=== PATIENT | male | born 1945 | race Caucasian/White ===

== ENCOUNTER → 2020-07-04 | Outpatient (CLI) | payer OTHER ==
[2020-07-04 15:51] LABS: BASO # 0.1 10^3/uL (0.0-0.2); BASO % 1.5 % (0.0-1.0); EOS # 0.2 10^3/uL (0.0-0.5); HEMATOCRIT 41.2 % (42.0-52.0); HEMOGLOBIN 13.5 g/dl (13.5-17.5); LYMPH # 1.5 10^3/uL (1.5-5.0); LYMPH % 27.5 % (24.0-44.0); MEAN CORPUSCULAR HEMOGLOBIN 35.3 pg (27.0-33.0); MEAN CORPUSCULAR HGB CONC 32.8 g/dl (32.0-36.5); MEAN CORPUSCULAR VOLUME 107.9 fl (80.0-96.0); MONO # 0.4 10^3/uL (0.0-0.8); MONO % 8.2 % (0.0-5.0); NEUTROPHILS # 3.1 10^3/uL (1.5-8.5); NEUTROPHILS % 59.4 % (36.0-66.0); PLATELET COUNT, AUTOMATED 136 10^3/uL (150-450); RED BLOOD COUNT 3.82 10^6/uL (4.30-6.10); WHITE BLOOD COUNT 5.3 10^3/uL (4.0-10.0)
[2020-07-04 16:12] LABS: HEMOGLOBIN A1c 4.9 %
[2020-07-04 16:52] LABS: ALBUMIN 3.8 GM/DL (3.2-5.2); BILIRUBIN,TOTAL 0.6 MG/DL (0.2-1.0); CALCIUM LEVEL 9.5 MG/DL (8.8-10.2); CHOLESTEROL RISK RATIO 2.032 (<5); CREATININE FOR GFR 1.26 MG/DL (0.70-1.30); GLOMERULAR FILTRATION RATE 59.6 (>42); POTASSIUM SERUM 4.5 MEQ/L (3.5-5.1); TOTAL PROTEIN 7.4 GM/DL (6.4-8.2)
== END ==
LOC: M WUC 13:27
PROVIDERS: ATTEND Family Medicine
DX: E78.2 Mixed hyperlipidemia (principal); I10 Essential (primary) hypertension; R73.01 Impaired fasting glucose

== ENCOUNTER → 2021-04-18 | Outpatient (CLI) | payer OTHER ==
--- NOTE | 2021-04-19 07:06 | REP ---
INDICATION: CKD III COMPARISON: None TECHNIQUE: Real time flores scale ultrasound examination using curved array transducer. FINDINGS: Bilateral kidneys are normal in contour, size, echogenicity and reniform shape. Increased central sinus fat and renovascular calcifications are consistent with chronic medical renal disease. No hydronephrosis, nephrolithiasis, cystic or renal mass lesion. Bladder is unremarkable. Right kidney measures 11.0 x 4.6 x 4.3 cm. Left kidney measures 11.6 x 4.1 x 5.1 cm. IMPRESSION: 1. Evidence for chronic medical renal disease. 2. No hydronephrosis. <Electronically signed by Frederick Denny > 04/19/21 0702
== END ==
LOC: M RAD 14:53
PROVIDERS: ATTEND Internal Medicine
DX: N18.30 Chronic kidney disease, stage 3 unspecified (principal)

== ENCOUNTER 2022-11-13 17:57 | Inpatient (IN) | payer OTHER ==
[~2022-11-13] VITALS: Ht 198.1 cm; Wt 109.6 kg
[2022-11-13] MEDS ORDERED: D3 +TAB PO (18:11)
[2022-11-13] MEDS ORDERED: MIRT1TAB17 PO (18:11)
[2022-11-13] MEDS ORDERED: GLUC2.5T9 PO (18:11)
[2022-11-13] MEDS ORDERED: SIMV40TA20 PO (18:11)
[2022-11-13] MEDS ORDERED: VITMTA PO ×2 (18:11→23:02)
[2022-11-13] MEDS ORDERED: ASPI81CH33 PO (18:11)
[2022-11-13] MEDS ORDERED: FLUT15.820 NARES (18:11)
[2022-11-13] MEDS ORDERED: PRAZ1CAP PO (18:11)
[2022-11-13] MEDS ORDERED: LOSA100T45 PO (18:11)
[2022-11-13] MEDS ORDERED: OMEP-173 PO (18:11)
[2022-11-13] MEDS ORDERED: CLON0.5T17 PO (18:11)
[2022-11-13 18:53] LABS: EOS # 0.1 10^3/uL (0.0-0.5); LYMPH # 0.7 10^3/uL (1.5-5.0); LYMPH % 18.1 % (24.0-44.0); MEAN CORPUSCULAR HEMOGLOBIN 19.9 pg (27.0-33.0); MEAN CORPUSCULAR HGB CONC 27.3 g/dl (32.0-36.5); MEAN CORPUSCULAR VOLUME 72.7 fl (80.0-96.0); MONO # 0.4 10^3/uL (0.0-0.8); MONO % 9.8 % (2.0-8.0); NEUTROPHILS # 2.7 10^3/uL (1.5-8.5); NEUTROPHILS % 68.6 % (36.0-66.0); PLATELET COUNT, AUTOMATED 152 10^3/uL (150-450); RED BLOOD COUNT 2.82 10^6/uL (4.30-6.10)
[2022-11-13 19:00] LABS: HEMATOCRIT 20.5 % (42.0-52.0); HEMOGLOBIN 5.6 g/dl (13.5-17.5)
[2022-11-13] MEDS ORDERED: PANTOPRAZOLE 40MG VIAL IV ONE (19:15)
[2022-11-13 19:16] LABS: ALBUMIN 2.5 G/DL (3.2-5.2); BILIRUBIN,DIRECT 0.3 MG/DL (<0.4); BILIRUBIN,TOTAL 0.8 MG/DL (0.3-1.2); CALCIUM LEVEL 8.3 MG/DL (8.3-10.6); CREATININE FOR GFR 1.84 MG/DL (0.70-1.30); GLOMERULAR FILTRATION RATE 38.3 (>42); POTASSIUM SERUM 4.7 MMOL/L (3.5-5.1); TOTAL PROTEIN 6.4 G/DL (5.7-8.2)
[2022-11-13 19:24] LABS: PERCENT SATURATION 2.3 % (19.7-50.0)
[2022-11-13 19:28] LABS: FERRITIN 7.4 NG/ML (10.5-307.3)
[2022-11-13 19:29] LABS: FOLATE 17.98 NG/ML (>5.4)
[2022-11-13 19:44] LABS: RSV AMPLIFICATION NEGATIVE (NEGATIVE)
[2022-11-13 19:59] LABS: INR 1.1; PROTHROMBIN TIME 14.4 SECONDS (12.5-14.5)
[2022-11-13] MEDS ORDERED: PANTOPRAZOLE SODIUM 40 MG in D5W 50 ML IV SCH (20:00)
[2022-11-13] MEDS ORDERED: FUROSEMIDE 100MG/10ML VIAL IV ONE (20:15)
[2022-11-13 20:47] VITALS: BP 115/59
[2022-11-13] MEDS: THIAMINE 100 MG TAB PO SCH (21:00)
[2022-11-13 21:06] VITALS: BP 116/57
[2022-11-13 22:13] VITALS: BP 118/63
[2022-11-13] MEDS ORDERED: LORazepam 2 MG TAB PO PRN (23:00)
[2022-11-13] MEDS ORDERED: OMEP1CAP73 PO (23:02)
[2022-11-13] MEDS ORDERED: FLON1SPR (23:02)
[2022-11-13] MEDS ORDERED: MELA3TAB30 PO (23:02)
[2022-11-13] MEDS ORDERED: ASPI-161 PO (23:02)
[2022-11-13] MEDS ORDERED: CETI-24 PO (23:02)
[2022-11-13] MEDS ORDERED: MIRT-62 PO (23:02)
[2022-11-13] MEDS ORDERED: OCUVTAB4 PO (23:02)
[2022-11-13] MEDS ORDERED: COZA100T3 PO (23:02)
[2022-11-13] MEDS ORDERED: VITA100093 PO (23:02)
[2022-11-13] MEDS ORDERED: HOME MED LIST COMPLETE! XX SCH (23:05)
[2022-11-14] VITALS (25 sets, daily range): BP systolic 94–129; BP diastolic 52–80; O2SAT 93–96
[2022-11-14] MEDS ORDERED: FLUTICASONE PROP 0.05% NASAL SPRAY 16 GM (FLONASE) PRN (00:30)
[2022-11-14] MEDS: MIRTAZAPINE 15 MG TAB PO SCH ×2 (00:43→21:14)
[2022-11-14 05:51] LABS: HEMATOCRIT 22.3 % (42.0-52.0); MEAN CORPUSCULAR HEMOGLOBIN 21.9 pg (27.0-33.0); MEAN CORPUSCULAR HGB CONC 29.1 g/dl (32.0-36.5); MEAN CORPUSCULAR VOLUME 75.1 fl (80.0-96.0); PLATELET COUNT, AUTOMATED 114 10^3/uL (150-450); RED BLOOD COUNT 2.97 10^6/uL (4.30-6.10); WHITE BLOOD COUNT 3.5 10^3/uL (4.0-10.0)
[2022-11-14 05:57] LABS: HEMOGLOBIN 6.5 g/dl (13.5-17.5)
[2022-11-14 06:25] LABS: BLOOD UREA NITROGEN 22 MG/DL (9-23); CALCIUM LEVEL 7.8 MG/DL (8.3-10.6); CARBON DIOXIDE LEVEL 26 MMOL/L (20-31); CHLORIDE LEVEL 107 MMOL/L (98-107); GLOMERULAR FILTRATION RATE 39.2 (>42); GLUCOSE, FASTING 102 MG/DL (74-106); SODIUM LEVEL 140 MMOL/L (136-145)
[2022-11-14] MEDS ORDERED: FUROSEMIDE 40MG/4ML VIAL IV SCH ×2 (07:05→09:00)
[2022-11-14] MEDS ORDERED: FUROSEMIDE 40MG/4ML VIAL IV ONE (07:10)
[2022-11-14] MEDS: SUCRALFATE 1 GM TAB PO SCH ×4 (07:38→21:14)
[2022-11-14 07:57] LABS: ALBUMIN 2.3 G/DL (3.2-5.2); ALKALINE PHOSPHATASE 169 U/L (46-116); ALT/SGPT < 9 U/L (7.0-40); AST/SGOT 18 U/L (<34); BILIRUBIN,DIRECT 0.7 MG/DL (<0.4); BILIRUBIN,TOTAL 1.9 MG/DL (0.3-1.2); TOTAL PROTEIN 5.7 G/DL (5.7-8.2)
[2022-11-14] MEDS: MULTIVITAMINS/MINERALS THERAP 1 TAB PO SCH (08:40)
[2022-11-14] MEDS: FOLIC ACID 1MG TAB PO SCH (08:40)
[2022-11-14] MEDS: OMEPRAZOLE 20MG CAP PO SCH (08:40)
[2022-11-14] MEDS: THIAMINE 100 MG TAB PO SCH ×2 (08:40→21:14)
[2022-11-14] MEDS: PANTOPRAZOLE 40MG TAB (PROTONIX) PO SCH (08:41)
[2022-11-14] MEDS ORDERED: ASPIRIN 81MG ENTERIC TABLET PO SCH (09:00)
[2022-11-14 14:22] LABS: CALCIUM LEVEL 8.2 MG/DL (8.3-10.6); CREATININE FOR GFR 1.84 MG/DL (0.70-1.30); GLOMERULAR FILTRATION RATE 38.3 (>42); POTASSIUM SERUM 4.5 MMOL/L (3.5-5.1)
[2022-11-14 15:27] LABS: APPEARANCE, BODY FLUID HAZY (CLEAR); ASCITES FL COLOR YELLOW (COLORLESS); SOURCE, BODY FLUID ASCITES
[2022-11-14 15:37] LABS: HEMATOCRIT 25.6 % (42.0-52.0); HEMOGLOBIN 7.4 g/dl (13.5-17.5)
[2022-11-14 15:47] LABS: SOURCE, BODY FLUID ALBUMIN ASCITES
[2022-11-14 15:52] LABS: SOURCE, BODY FLUID GLUCOSE ASCITES
[2022-11-14 15:54] LABS: SOURCE, BODY FLUID TOT PROTEIN ASCITES; TOTAL PROTEIN, BODY FLUID < 2.0 G/DL (NOT ESTABLISHED)
[2022-11-14] MEDS: MIDODRINE 5 MG TAB PO SCH (16:06)
[2022-11-14 18:27] LABS: HEMATOCRIT 25.7 % (42.0-52.0); HEMOGLOBIN 7.7 g/dl (13.5-17.5)
[2022-11-15] VITALS (16 sets, daily range): BP systolic 98–120; BP diastolic 52–73
[2022-11-15 05:47] LABS: HEMATOCRIT 23.8 % (42.0-52.0); MEAN CORPUSCULAR HEMOGLOBIN 21.8 pg (27.0-33.0); MEAN CORPUSCULAR VOLUME 75.3 fl (80.0-96.0); PLATELET COUNT, AUTOMATED 125 10^3/uL (150-450); RED BLOOD COUNT 3.16 10^6/uL (4.30-6.10); WHITE BLOOD COUNT 3.5 10^3/uL (4.0-10.0)
[2022-11-15 05:56] LABS: HEMOGLOBIN 6.9 g/dl (13.5-17.5)
[2022-11-15 06:21] LABS: CALCIUM LEVEL 7.7 MG/DL (8.3-10.6); CREATININE FOR GFR 1.68 MG/DL (0.70-1.30); GLOMERULAR FILTRATION RATE 42.5 (>42); POTASSIUM SERUM 3.8 MMOL/L (3.5-5.1); TOTAL PROTEIN 5.3 G/DL (5.7-8.2)
[2022-11-15] MEDS: MULTIVITAMINS/MINERALS THERAP 1 TAB PO SCH (07:54)
[2022-11-15] MEDS: FOLIC ACID 1MG TAB PO SCH (07:54)
[2022-11-15] MEDS: SUCRALFATE 1 GM TAB PO SCH ×4 (07:54→22:08)
[2022-11-15] MEDS: OMEPRAZOLE 20MG CAP PO SCH (07:54)
[2022-11-15] MEDS: PANTOPRAZOLE 40MG TAB (PROTONIX) PO SCH (07:55)
[2022-11-15] MEDS: THIAMINE 100 MG TAB PO SCH ×2 (07:55→22:08)
[2022-11-15] MEDS: MIDODRINE 5 MG TAB PO SCH ×5 (07:55→17:22)
[2022-11-15 16:45] LABS: SOURCE, BODY FLUID pH PLEURAL
[2022-11-15 16:56] LABS: SOURCE, BODY FLUID PLEURAL
[2022-11-15 16:57] LABS: APPEARANCE, BODY FLUID CLEAR (CLEAR); PLEURAL FL COLOR YELLOW (COLORLESS)
[2022-11-15 17:39] LABS: SOURCE, BODY FLUID ALBUMIN PLEURAL
[2022-11-15 17:44] LABS: SOURCE, BODY FLUID GLUCOSE PLEURAL; SOURCE, BODY FLUID TRIG PLEURAL; TRIGLYCERIDE, BODY FLUID 16 MG/DL (NOT ESTABLISHED)
[2022-11-15 17:46] LABS: AMYLASE, BODY FLUID < 20 U/L (NOT ESTABLISHED); CHOLESTEROL, BODY FLUID < 25 MG/DL (NOT ESTABLISHED); LDH, BODY FLUID 77 U/L (NOT ESTABLISHED); SOURCE, BODY FLUID AMYLASE PLEURAL; SOURCE, BODY FLUID CHOL PLEURAL; SOURCE, BODY FLUID LDH PLEURAL
[2022-11-15 17:47] LABS: SOURCE, BODY FLUID TOT PROTEIN PLEURAL; TOTAL PROTEIN, BODY FLUID 2.4 G/DL (NOT ESTABLISHED)
[2022-11-15 18:47] LABS: HEMATOCRIT 30.2 % (42.0-52.0)
[2022-11-15] MEDS: MIRTAZAPINE 15 MG TAB PO SCH (22:08)
[2022-11-16 06:00] VITALS: BP 122/66
[2022-11-16] MEDS ORDERED: SUCR1TA PO (07:59)
[2022-11-16] MEDS ORDERED: PANT40TA29 PO (07:59)
[2022-11-16] MEDS ORDERED: SELF1KIT MC (08:00)
[2022-11-16] MEDS ORDERED: PROP10TA56 PO (08:03)
[2022-11-16 08:41] LABS: HEMATOCRIT 28.6 % (42.0-52.0); HEMOGLOBIN 8.6 g/dl (13.5-17.5); MEAN CORPUSCULAR HEMOGLOBIN 22.9 pg (27.0-33.0); MEAN CORPUSCULAR HGB CONC 30.1 g/dl (32.0-36.5); MEAN CORPUSCULAR VOLUME 76.3 fl (80.0-96.0); PLATELET COUNT, AUTOMATED 134 10^3/uL (150-450); RED BLOOD COUNT 3.75 10^6/uL (4.30-6.10); WHITE BLOOD COUNT 4.9 10^3/uL (4.0-10.0)
[2022-11-16 08:53] VITALS: BP 118/78
[2022-11-16] MEDS: PANTOPRAZOLE 40MG TAB (PROTONIX) PO SCH (08:53)
[2022-11-16] MEDS: OMEPRAZOLE 20MG CAP PO SCH (08:53)
[2022-11-16] MEDS: FOLIC ACID 1MG TAB PO SCH (08:53)
[2022-11-16] MEDS: MULTIVITAMINS/MINERALS THERAP 1 TAB PO SCH (08:53)
[2022-11-16] MEDS: SUCRALFATE 1 GM TAB PO SCH (08:53)
[2022-11-16] MEDS: THIAMINE 100 MG TAB PO SCH (08:53)
[2022-11-16] MEDS ORDERED: PROPRANOLOL 10 MG TAB PO SCH (09:00)
[2022-11-16] MEDS ORDERED: rifAXIMin 550 MG TAB (XIFAXAN) PO SCH (09:00)
[2022-11-16 09:05] LABS: CALCIUM LEVEL 7.8 MG/DL (8.3-10.6); CREATININE FOR GFR 1.49 MG/DL (0.70-1.30); GLOMERULAR FILTRATION RATE 48.8 (>42); POTASSIUM SERUM 3.7 MMOL/L (3.5-5.1)
[2022-11-16] MEDS ORDERED: XIFA200T2 PO (09:31)
[2022-11-16] MEDS ORDERED: XIFA550T PO (09:34)
== END 2022-11-16 13:34 | disposition home health service (06) | DRG 433 ==
LOC: M ED 17:57 → M ED INP 22:14 → ENRESERV 22:49 → CANRESERV 22:49 → M PCU 22:58 → ENRESERV 23:07 → M MSPAV 11-14 18:22
PROVIDERS: ADMIT Family Medicine; ATTEND General Practice
PROC: 30233N1 Transfusion of Nonautologous Red Blood Cells into Peripheral Vein, Percutaneous Approach (ICD-10-PCS; principal; 2022-11-13)
PROC: 30233J1 Transfusion of Nonautologous Serum Albumin into Peripheral Vein, Percutaneous Approach (ICD-10-PCS; 2022-11-14)
PROC: 0W9G3ZZ Drainage of Peritoneal Cavity, Percutaneous Approach (ICD-10-PCS; 2022-11-14)
PROC: 0W993ZZ Drainage of Right Pleural Cavity, Percutaneous Approach (ICD-10-PCS; 2022-11-15)
PROC: B246ZZZ Ultrasonography of Right and Left Heart (ICD-10-PCS; 2022-11-16)
DX: K70.31 Alcoholic cirrhosis of liver with ascites (principal); N17.9 Acute kidney failure, unspecified; K76.6 Portal hypertension; J90 Pleural effusion, not elsewhere classified; I12.9 Hypertensive chronic kidney disease with stage 1 through stage 4 chronic kidney disease, or unspecified chronic kidney disease; E78.5 Hyperlipidemia, unspecified; F43.10 Post-traumatic stress disorder, unspecified; M19.90 Unspecified osteoarthritis, unspecified site; Z90.49 Acquired absence of other specified parts of digestive tract; Z87.891 Personal history of nicotine dependence; D50.9 Iron deficiency anemia, unspecified; F10.10 Alcohol abuse, uncomplicated; Z66 Do not resuscitate; Z79.82 Long term (current) use of aspirin; Z79.899 Other long term (current) drug therapy; N18.9 Chronic kidney disease, unspecified; R79.89 Other specified abnormal findings of blood chemistry

== ENCOUNTER 2022-12-23 13:11 | Inpatient (IN) | payer MEDICARE, OTHER ==
[~2022-12-23] VITALS: Ht 198.1 cm; Wt 96.5 kg
[~2022-12-23 13:11] MED LIST: ASPI-161 PO; ASPI81CH33 PO; CETI-24 PO; CLON0.5T17 PO; COZA100T3 PO; D3 +TAB PO; FLON1SPR; FLUT15.820 NARES; GLUC2.5T9 PO; LOSA100T46 PO; MELA3TAB30 PO; MIRT-62 PO; MIRT1TAB17 PO; OCUVTAB4 PO; OMEP-173 PO; OMEP1CAP73 PO; PANT40TA29 PO; PRAZ1CAP PO; PROP10TA56 PO; SELF1KIT MC; SIMV40TA20 PO; SUCR1TA PO; VITA100093 PO; VITMTA PO; XIFA200T2 PO; XIFA550T PO
[2022-12-23 14:16] LABS: BASO # 0.1 10^3/uL (0.0-0.2); BASO % 1.6 % (0.0-1.0); EOS # 0.1 10^3/uL (0.0-0.5); EOS % 1.3 % (0.0-3.0); HEMATOCRIT 33.1 % (42.0-52.0); HEMOGLOBIN 9.7 g/dl (13.5-17.5); LYMPH # 0.7 10^3/uL (1.5-5.0); LYMPH % 18.9 % (24.0-44.0); MEAN CORPUSCULAR HGB CONC 29.3 g/dl (32.0-36.5); MEAN CORPUSCULAR VOLUME 81.9 fl (80.0-96.0); MONO # 0.3 10^3/uL (0.0-0.8); MONO % 8.4 % (2.0-8.0); NEUTROPHILS # 2.7 10^3/uL (1.5-8.5); NEUTROPHILS % 69.5 % (36.0-66.0); PLATELET COUNT, AUTOMATED 162 10^3/uL (150-450); RED BLOOD COUNT 4.04 10^6/uL (4.30-6.10); WHITE BLOOD COUNT 3.8 10^3/uL (4.0-10.0)
[2022-12-23 14:24] LABS: INR 1.02; PROTHROMBIN TIME 13.6 SECONDS (12.5-14.5)
[2022-12-23 14:42] LABS: ALBUMIN 2.5 G/DL (3.2-5.2); ALKALINE PHOSPHATASE 193 U/L (46-116); ALT/SGPT 10 U/L (7.0-40); AST/SGOT 25 U/L (<34); BILIRUBIN,DIRECT 0.4 MG/DL (<0.4); BILIRUBIN,TOTAL 0.9 MG/DL (0.3-1.2); BLOOD UREA NITROGEN 8 MG/DL (9-23); CALCIUM LEVEL 8.2 MG/DL (8.3-10.6); CARBON DIOXIDE LEVEL 27 MMOL/L (20-31); CHLORIDE LEVEL 103 MMOL/L (98-107); CREATININE FOR GFR 1.17 MG/DL (0.70-1.30); GLOMERULAR FILTRATION RATE > 60.0 (>42); GLUCOSE, FASTING 145 MG/DL (74-106); POTASSIUM SERUM 3.6 MMOL/L (3.5-5.1); SODIUM LEVEL 137 MMOL/L (136-145); TOTAL PROTEIN 6.6 G/DL (5.7-8.2)
[2022-12-23] MEDS ORDERED: FUROSEMIDE 40MG/4ML VIAL IV ONE (15:40)
[2022-12-23] MEDS ORDERED: HOME MED LIST COMPLETE! XX SCH (17:00)
[2022-12-23] MEDS ORDERED: THIAMINE 100 MG TAB PO SCH (21:00)
[2022-12-23 21:03] VITALS: BP 138/71
[2022-12-23] MEDS: MIRTAZAPINE 15 MG TAB PO SCH (21:54)
[2022-12-23] MEDS: PROPRANOLOL 10 MG TAB PO SCH (21:56)
[2022-12-23] MEDS ORDERED: LORazepam 2 MG TAB PO PRN (22:00)
[2022-12-23] MEDS ORDERED: RAMELTEON 8 MG TAB (ROZEREM) PO PRN (22:00)
[2022-12-24] VITALS (11 sets, daily range): BP systolic 98–126; BP diastolic 62–72
[2022-12-24 06:18] LABS: BASO # 0.1 10^3/uL (0.0-0.2); BASO % 1.9 % (0.0-1.0); EOS # 0.2 10^3/uL (0.0-0.5); EOS % 3.9 % (0.0-3.0); HEMATOCRIT 27.4 % (42.0-52.0); HEMOGLOBIN 8.1 g/dl (13.5-17.5); LYMPH # 1.2 10^3/uL (1.5-5.0); LYMPH % 27.1 % (24.0-44.0); MEAN CORPUSCULAR HEMOGLOBIN 23.9 pg (27.0-33.0); MEAN CORPUSCULAR HGB CONC 29.6 g/dl (32.0-36.5); MEAN CORPUSCULAR VOLUME 80.8 fl (80.0-96.0); MONO # 0.6 10^3/uL (0.0-0.8); NEUTROPHILS # 2.3 10^3/uL (1.5-8.5); NEUTROPHILS % 53.9 % (36.0-66.0); PLATELET COUNT, AUTOMATED 155 10^3/uL (150-450); RED BLOOD COUNT 3.39 10^6/uL (4.30-6.10); WHITE BLOOD COUNT 4.3 10^3/uL (4.0-10.0)
[2022-12-24 06:42] LABS: LDH LACTATE DEHYDROGENASE 152 U/L (120-246)
[2022-12-24 06:43] LABS: TOTAL IRON BINDING CAPACITY 259 UG/DL (250-425)
[2022-12-24 06:44] LABS: BLOOD UREA NITROGEN 9 MG/DL (9-23); CALCIUM LEVEL 7.8 MG/DL (8.3-10.6); CARBON DIOXIDE LEVEL 28 MMOL/L (20-31); CHLORIDE LEVEL 105 MMOL/L (98-107); CREATININE FOR GFR 1.21 MG/DL (0.70-1.30); GLOMERULAR FILTRATION RATE > 60.0 (>42); GLUCOSE, FASTING 100 MG/DL (74-106); IRON (FE) 13 UG/DL (65-175); POTASSIUM SERUM 3.6 MMOL/L (3.5-5.1); SODIUM LEVEL 136 MMOL/L (136-145)
[2022-12-24 06:46] LABS: FERRITIN 14.9 NG/ML (10.5-307.3)
[2022-12-24 08:39] LABS: ALBUMIN 2.2 G/DL (3.2-5.2)
[2022-12-24] MEDS: SPIRONOLACTONE 25 MG TAB PO SCH ×2 (09:00→17:26)
[2022-12-24] MEDS: PROPRANOLOL 10 MG TAB PO SCH ×2 (09:00→21:00)
[2022-12-24] MEDS ORDERED: FUROSEMIDE 40MG/4ML VIAL IV SCH (09:00)
[2022-12-24] MEDS ORDERED: FOLIC ACID 1MG TAB PO SCH (09:00)
[2022-12-24] MEDS: OMEPRAZOLE 20MG CAP PO SCH (09:10)
[2022-12-24] MEDS: CETIRIZINE (ZyrTEC) 10 MG TAB PO SCH (09:10)
[2022-12-24] MEDS: VITAMIN D 1,000 INTERNATIONAL UNITS TABLET PO SCH (09:10)
[2022-12-24] MEDS: MULTIVITAMINS/MINERALS THERAP 1 TAB PO SCH (09:10)
[2022-12-24 12:22] LABS: APPEARANCE, BODY FLUID HAZY (CLEAR); ASCITES FL COLOR PALE YELLOW (COLORLESS); SOURCE, BODY FLUID ASCITES
[2022-12-24 12:58] LABS: SOURCE, BODY FLUID ALBUMIN ASCITES
[2022-12-24 13:04] LABS: SOURCE, BODY FLUID GLUCOSE ASCITES
[2022-12-24 13:06] LABS: SOURCE, BODY FLUID TOT PROTEIN ASCITES; TOTAL PROTEIN, BODY FLUID < 2.0 G/DL (NOT ESTABLISHED)
[2022-12-24] MEDS ORDERED: POTASSIUM CHLORIDE 10MEQ SR TABLET PO ONE (14:00)
[2022-12-24] MEDS: FERROUS SULFATE 325MG TAB PO SCH (14:13)
[2022-12-24] MEDS ORDERED: FERRIC CARBOXYMALTOSE INJ 750 MG, VIAL MATE ADAPTER 1 EACH in NS 250 ML IV ONE (15:00)
[2022-12-24] MEDS: FERRIC CARBOXYMALTOSE INJ 750 MG, VIAL MATE ADAPTER 1 EACH in NS 250 ML IV ONE ×2 (21:00→22:45)
[2022-12-24] MEDS: MIRTAZAPINE 15 MG TAB PO SCH (22:13)
[2022-12-25 06:00] VITALS: BP 114/67
[2022-12-25 07:10] LABS: BASO % 1.4 % (0.0-1.0); EOS # 0.1 10^3/uL (0.0-0.5); EOS % 3.8 % (0.0-3.0); HEMATOCRIT 26.5 % (42.0-52.0); LYMPH % 35.7 % (24.0-44.0); MEAN CORPUSCULAR HGB CONC 30.2 g/dl (32.0-36.5); MEAN CORPUSCULAR VOLUME 79.6 fl (80.0-96.0); MONO # 0.4 10^3/uL (0.0-0.8); MONO % 12.6 % (2.0-8.0); NEUTROPHILS # 1.3 10^3/uL (1.5-8.5); NEUTROPHILS % 46.2 % (36.0-66.0); PLATELET COUNT, AUTOMATED 134 10^3/uL (150-450); RED BLOOD COUNT 3.33 10^6/uL (4.30-6.10); WHITE BLOOD COUNT 2.9 10^3/uL (4.0-10.0)
[2022-12-25 07:42] LABS: BLOOD UREA NITROGEN 10 MG/DL (9-23); CALCIUM LEVEL 7.3 MG/DL (8.3-10.6); CARBON DIOXIDE LEVEL 27 MMOL/L (20-31); CHLORIDE LEVEL 106 MMOL/L (98-107); CREATININE FOR GFR 1.17 MG/DL (0.70-1.30); GLOMERULAR FILTRATION RATE > 60.0 (>42); GLUCOSE, FASTING 82 MG/DL (74-106); POTASSIUM SERUM 3.7 MMOL/L (3.5-5.1); SODIUM LEVEL 139 MMOL/L (136-145)
[2022-12-25] MEDS: MULTIVITAMINS/MINERALS THERAP 1 TAB PO SCH (08:57)
[2022-12-25] MEDS: OMEPRAZOLE 20MG CAP PO SCH (08:58)
[2022-12-25] MEDS: CETIRIZINE (ZyrTEC) 10 MG TAB PO SCH (08:58)
[2022-12-25] MEDS: FERROUS SULFATE 325MG TAB PO SCH (08:58)
[2022-12-25] MEDS: VITAMIN D 1,000 INTERNATIONAL UNITS TABLET PO SCH (08:58)
[2022-12-25] MEDS ORDERED: FUROSEMIDE 40 MG TAB PO SCH (09:00)
[2022-12-25] MEDS ORDERED: FUROSEMIDE 20 MG TAB PO SCH (09:00)
[2022-12-25] MEDS: SPIRONOLACTONE 25 MG TAB PO SCH (09:40)
[2022-12-25] MEDS ORDERED: MAGN400C PO (10:59)
[2022-12-25] MEDS ORDERED: ALDA25TA2 PO (10:59)
[2022-12-25] MEDS ORDERED: FURO40TA2 PO (10:59)
[2022-12-25] MEDS ORDERED: POTA-151 PO (10:59)
[2022-12-25] MEDS ORDERED: FERR1TAB8 PO (10:59)
[2022-12-25] MEDS ORDERED: MIDO5TA PO (10:59)
[2022-12-25] MEDS ORDERED: MIRA3350 PO (11:02)
[2022-12-25 11:03] VITALS: BP 113/69
== END 2022-12-25 15:00 | disposition home or self-care (01) | DRG 433 ==
LOC: M ED 13:11 → M ED INP 16:25 → M MSPAV 21:03
PROVIDERS: ADMIT Internal Medicine Nephrology; ATTEND Internal Medicine
PROC: 0W9G3ZZ Drainage of Peritoneal Cavity, Percutaneous Approach (ICD-10-PCS; principal; 2022-12-24 14:00)
DX: K70.31 Alcoholic cirrhosis of liver with ascites (principal); K76.6 Portal hypertension; J94.8 Other specified pleural conditions; I12.9 Hypertensive chronic kidney disease with stage 1 through stage 4 chronic kidney disease, or unspecified chronic kidney disease; N18.9 Chronic kidney disease, unspecified; E78.5 Hyperlipidemia, unspecified; D50.9 Iron deficiency anemia, unspecified; K21.9 Gastro-esophageal reflux disease without esophagitis; E55.9 Vitamin D deficiency, unspecified; Z79.899 Other long term (current) drug therapy; F43.10 Post-traumatic stress disorder, unspecified; M19.90 Unspecified osteoarthritis, unspecified site

== ENCOUNTER → 2023-04-24 | Outpatient (CLI) | payer MEDICARE, OTHER ==
[~2023-04-24] MED LIST changes: +ALDA25TA2 PO; -COZA100T3 PO; +FERR1TAB8 PO; +FURO40TA2 PO; +LOSA-530 PO; +MAGN400C PO; +MIDO5TA PO; +MIRA3350 PO; -MIRT-62 PO; +MIRT-88 PO; +POTA-151 PO
[2023-04-24 07:38] VITALS: TEMP 99.6
[2023-04-24 07:55] LABS: HEMATOCRIT 30.7 % (42.0-52.0); HEMOGLOBIN 9.4 g/dl (13.5-17.5); MEAN CORPUSCULAR HGB CONC 30.6 g/dl (32.0-36.5); PLATELET COUNT, AUTOMATED 159 10^3/uL (150-450); RED BLOOD COUNT 3.61 10^6/uL (4.30-6.10); WHITE BLOOD COUNT 4.1 10^3/uL (4.0-10.0)
[2023-04-24 08:11] LABS: INR 1.26; PROTHROMBIN TIME 15.4 SECONDS (12.5-14.5)
[2023-04-24 08:40] VITALS: BP 112/60; O2SAT 95
== END ==
LOC: M IRPRO 07:31
PROVIDERS: ATTEND Internal Medicine
DX: K70.11 Alcoholic hepatitis with ascites (principal)

== ENCOUNTER → 2023-05-27 | Outpatient (CLI) | payer MEDICARE, OTHER ==
[~2023-05-27] MED LIST changes: +LIDOCAINE 1% MDV 20ML VIAL As Ordered ONE
[2023-05-27 14:55] VITALS: TEMP 98.3
[2023-05-27 16:32] VITALS: BP 122/69; O2SAT 98
== END ==
LOC: M IRPRO 14:33
PROVIDERS: ATTEND Internal Medicine
DX: K70.11 Alcoholic hepatitis with ascites (principal)

== ENCOUNTER → 2023-06-17 | Outpatient (CLI) | payer MEDICARE, OTHER ==
[~2023-06-17] MED LIST changes: -LIDOCAINE 1% MDV 20ML VIAL As Ordered ONE
[2023-06-17 11:18] VITALS: TEMP 97.7
[2023-06-17 12:08] VITALS: BP 118/73; O2SAT 100
== END ==
LOC: M IRPRO 11:07
PROVIDERS: ATTEND Internal Medicine
DX: K70.11 Alcoholic hepatitis with ascites (principal)

== ENCOUNTER → 2023-07-02 | Outpatient (CLI) | payer MEDICARE, OTHER ==
[2023-07-02 11:26] VITALS: TEMP 97.5
[2023-07-02 12:43] VITALS: BP 131/67; O2SAT 98
== END ==
LOC: M IRPRO 11:16
PROVIDERS: ATTEND Internal Medicine
DX: K70.11 Alcoholic hepatitis with ascites (principal)

== ENCOUNTER → 2023-07-16 | Outpatient (CLI) | payer MEDICARE, OTHER ==
[2023-07-16 11:03] VITALS: TEMP 99.9
[2023-07-16 12:40] VITALS: BP 101/61; O2SAT 98
== END ==
LOC: M IRPRO 10:22
PROVIDERS: ATTEND Internal Medicine
DX: K70.11 Alcoholic hepatitis with ascites (principal)

== ENCOUNTER → 2023-07-30 | Outpatient (CLI) | payer OTHER, MEDICARE ==
[2023-07-30 10:43] VITALS: TEMP 99
[2023-07-30 11:04] LABS: HEMATOCRIT 29.7 % (42.0-52.0); HEMOGLOBIN 8.7 g/dl (13.5-17.5); MEAN CORPUSCULAR HEMOGLOBIN 22.3 pg (27.0-33.0); MEAN CORPUSCULAR HGB CONC 29.3 g/dl (32.0-36.5); MEAN CORPUSCULAR VOLUME 76.2 fl (80.0-96.0); PLATELET COUNT, AUTOMATED 194 10^3/uL (150-450); WHITE BLOOD COUNT 4.1 10^3/uL (4.0-10.0)
[2023-07-30 11:18] LABS: INR 1.16; PROTHROMBIN TIME 14.4 SECONDS (12.5-14.5)
[2023-07-30 12:15] VITALS: BP 122/72; O2SAT 97
== END ==
LOC: M IRPRO 10:20
PROVIDERS: ATTEND Internal Medicine
DX: R18.8 Other ascites (principal)

== ENCOUNTER → 2023-08-15 | Outpatient (CLI) | payer MEDICARE, OTHER ==
[2023-08-15 13:51] VITALS: TEMP 98.2
[2023-08-15 15:08] VITALS: BP 112/65; O2SAT 99
== END ==
LOC: M IRPRO 13:28
PROVIDERS: ATTEND Internal Medicine
DX: K70.11 Alcoholic hepatitis with ascites (principal)

== ENCOUNTER → 2023-08-27 | Outpatient (CLI) | payer OTHER, MEDICARE ==
[2023-08-27 10:38] VITALS: TEMP 98
[2023-08-27 11:35] VITALS: BP 118/70; O2SAT 98
== END ==
LOC: M IRPRO 10:25
PROVIDERS: ATTEND Internal Medicine
DX: R18.8 Other ascites (principal)

== ENCOUNTER → 2023-09-10 | Outpatient (CLI) | payer OTHER, MEDICARE ==
[2023-09-10 10:28] VITALS: TEMP 98.9
[2023-09-10 11:33] VITALS: BP 116/73; O2SAT 98
== END ==
LOC: M IRPRO 10:20
PROVIDERS: ATTEND Internal Medicine
DX: K70.11 Alcoholic hepatitis with ascites (principal)

== ENCOUNTER → 2023-09-24 | Outpatient (CLI) | payer OTHER, MEDICARE ==
[2023-09-24 11:15] VITALS: BP 100/65; O2SAT 94
== END ==
LOC: M IRPRO 10:32
PROVIDERS: ATTEND Internal Medicine
DX: K70.11 Alcoholic hepatitis with ascites (principal)

== ENCOUNTER 2023-09-27 23:33 | Inpatient (IN) | payer MEDICARE, OTHER ==
[~2023-09-27] VITALS: Ht 198.1 cm; Wt 79.7 kg
[~2023-09-27 23:33] MED LIST changes: -ASPI-161 PO; +ASPI-615 PO
[2023-09-28] VITALS (7 sets, daily range): BP systolic 101–133; BP diastolic 54–76; TEMP 98.2–99; O2SAT 97–98
[2023-09-28 00:34] LABS: BASO # 0.1 10^3/uL (0.0-0.2); BASO % 0.7 % (0.0-1.0); EOS # 0.1 10^3/uL (0.0-0.5); EOS % 1.1 % (0.0-3.0); HEMATOCRIT 31.6 % (42.0-52.0); HEMOGLOBIN 9.2 g/dl (13.5-17.5); LYMPH # 1.1 10^3/uL (1.5-5.0); LYMPH % 14.5 % (24.0-44.0); MEAN CORPUSCULAR HEMOGLOBIN 21.1 pg (27.0-33.0); MEAN CORPUSCULAR HGB CONC 29.1 g/dl (32.0-36.5); MEAN CORPUSCULAR VOLUME 72.6 fl (80.0-96.0); MONO # 0.6 10^3/uL (0.0-0.8); MONO % 7.9 % (2.0-8.0); NEUTROPHILS # 5.5 10^3/uL (1.5-8.5); NEUTROPHILS % 75.4 % (36.0-66.0); PLATELET COUNT, AUTOMATED 179 10^3/uL (150-450); RED BLOOD COUNT 4.35 10^6/uL (4.30-6.10); WHITE BLOOD COUNT 7.3 10^3/uL (4.0-10.0)
[2023-09-28 00:39] LABS: INR 1.09; PROTHROMBIN TIME 13.7 SECONDS (12.5-14.5)
[2023-09-28 00:40] LABS: PARTIAL THROMBOPLASTIN TIME 32.4 SECONDS (24.8-34.2)
[2023-09-28 00:53] LABS: ALBUMIN 1.9 G/DL (3.2-5.2); BILIRUBIN,TOTAL 0.5 MG/DL (0.3-1.2); CALCIUM LEVEL 7.4 MG/DL (8.3-10.6); CREATININE FOR GFR 1.55 MG/DL (0.70-1.30); GLOMERULAR FILTRATION RATE 46.5 (>42); MAGNESIUM LEVEL 1.9 MG/DL (1.8-2.4); POTASSIUM SERUM 5.1 MMOL/L (3.5-5.1); TOTAL PROTEIN 6.1 G/DL (5.7-8.2)
[2023-09-28] MEDS: EMLA CREAM 5GM TUBE (LIDOCAINE/PRILOCAINE) TOP ONE (01:23)
[2023-09-28] MEDS: MAG SULF 1GM/100ML (MAG RUN) 1 GM in IV 1 EA IV ONE (02:04)
[2023-09-28 02:34] LABS: CK-MB VALUE MASS 1.5 NG/ML (<3.6)
[2023-09-28 02:35] LABS: MB/CK RELATIVE INDEX 3.12 (< OR =4)
[2023-09-28] MEDS ORDERED: FURO40TA2 PO (02:38)
[2023-09-28] MEDS ORDERED: SPIR-10 PO (02:38)
[2023-09-28] MEDS ORDERED: TRAZ-252 PO (02:38)
[2023-09-28] MEDS ORDERED: HOME MED LIST COMPLETE! XX SCH (02:40)
[2023-09-28] MEDS ORDERED: LORazepam 2 MG TAB PO PRN (03:50)
[2023-09-28] MEDS: THIAMINE 100 MG TAB PO SCH (05:31)
[2023-09-28] MEDS: DOCUSATE SODIUM 100MG CAPSULE PO SCH (08:37)
[2023-09-28] MEDS: HEPARIN SOD (PORCINE) 5000UNITS/ML 1ML VIAL/SYRINGE SC SCH (08:37)
[2023-09-28] MEDS: MULTIVITAMINS/MINERALS THERAP 1 TAB PO SCH (08:37)
[2023-09-28] MEDS: FOLIC ACID 1MG TAB PO SCH (08:37)
[2023-09-28] MEDS: CETIRIZINE (ZyrTEC) 10 MG TAB PO SCH (11:22)
[2023-09-28] MEDS: OMEPRAZOLE 20MG CAP PO SCH (11:22)
[2023-09-28] MEDS: FUROSEMIDE 40MG/4ML VIAL IV SCH (11:23)
[2023-09-28] MEDS: MAGNESIUM OXIDE 400MG TAB (MAG-OX) PO SCH (16:11)
[2023-09-28] MEDS: MIRTAZAPINE 15 MG TAB PO SCH (21:25)
[2023-09-28] MEDS: traZODone 50 MG TAB PO SCH (21:25)
[2023-09-29] VITALS (9 sets, daily range): BP systolic 94–135; BP diastolic 56–81; TEMP 98.4–100.4; O2SAT 92–99
[2023-09-29 06:05] LABS: BASO # 0.1 10^3/uL (0.0-0.2); BASO % 0.7 % (0.0-1.0); EOS # 0.1 10^3/uL (0.0-0.5); HEMATOCRIT 28.7 % (42.0-52.0); HEMOGLOBIN 8.4 g/dl (13.5-17.5); LYMPH # 0.9 10^3/uL (1.5-5.0); MEAN CORPUSCULAR HEMOGLOBIN 20.9 pg (27.0-33.0); MEAN CORPUSCULAR HGB CONC 29.3 g/dl (32.0-36.5); MEAN CORPUSCULAR VOLUME 71.4 fl (80.0-96.0); MONO # 0.8 10^3/uL (0.0-0.8); MONO % 11.9 % (2.0-8.0); PLATELET COUNT, AUTOMATED 169 10^3/uL (150-450); RED BLOOD COUNT 4.02 10^6/uL (4.30-6.10)
[2023-09-29 06:25] LABS: CALCIUM LEVEL 7.6 MG/DL (8.3-10.6); CREATININE FOR GFR 1.38 MG/DL (0.70-1.30); GLOMERULAR FILTRATION RATE 53.2 (>42)
[2023-09-29] MEDS ORDERED: SPIRONOLACTONE 50 MG TAB PO SCH (09:00)
[2023-09-29] MEDS: SPIRONOLACTONE 50 MG TAB PO SCH (09:21)
[2023-09-29] MEDS: FUROSEMIDE 40 MG TAB PO SCH (09:22)
[2023-09-29 13:06] LABS: SOURCE, BODY FLUID ALBUMIN ASCITES
[2023-09-29 13:07] LABS: SOURCE, BODY FLUID ASCITES
[2023-09-29 13:08] LABS: APPEARANCE, BODY FLUID HAZY (CLEAR); ASCITES FL COLOR PALE YELLOW (COLORLESS)
[2023-09-29 13:21] LABS: SOURCE, BODY FLUID GLUCOSE ASCITES
[2023-09-29 13:23] LABS: SOURCE, BODY FLUID TOT PROTEIN ASCITES; TOTAL PROTEIN, BODY FLUID < 2.0 G/DL (NOT ESTABLISHED)
[2023-09-29] MEDS: cefTRIAXone SOD 2 GM in D5W MINI-BAG PLUS 50 ML IV SCH (14:19)
[2023-09-29] MEDS: MORPHINE 2 MG/ML 1ML VIAL IV ONE (21:54)
[2023-09-29] MEDS: NS 250 ML IV ONE (23:26)
[2023-09-30] VITALS (11 sets, daily range): BP systolic 101–120; BP diastolic 54–69; TEMP 98.6–100.9; O2SAT 94–97
[2023-09-30 08:09] LABS: BASO # 0.1 10^3/uL (0.0-0.2); BASO % 0.6 % (0.0-1.0); EOS # 0.1 10^3/uL (0.0-0.5); EOS % 0.8 % (0.0-3.0); HEMATOCRIT 27.7 % (42.0-52.0); HEMOGLOBIN 8.1 g/dl (13.5-17.5); LYMPH # 0.7 10^3/uL (1.5-5.0); MEAN CORPUSCULAR HEMOGLOBIN 21.1 pg (27.0-33.0); MEAN CORPUSCULAR HGB CONC 29.2 g/dl (32.0-36.5); MEAN CORPUSCULAR VOLUME 72.3 fl (80.0-96.0); MONO # 0.9 10^3/uL (0.0-0.8); MONO % 10.7 % (2.0-8.0); NEUTROPHILS # 6.5 10^3/uL (1.5-8.5); NEUTROPHILS % 78.4 % (36.0-66.0); PLATELET COUNT, AUTOMATED 143 10^3/uL (150-450); RED BLOOD COUNT 3.83 10^6/uL (4.30-6.10); WHITE BLOOD COUNT 8.3 10^3/uL (4.0-10.0)
[2023-09-30 08:28] LABS: BLOOD UREA NITROGEN 22 MG/DL (9-23); CALCIUM LEVEL 7.9 MG/DL (8.3-10.6); CARBON DIOXIDE LEVEL 25 MMOL/L (20-31); CHLORIDE LEVEL 97 MMOL/L (98-107); CREATININE FOR GFR 1.19 MG/DL (0.70-1.30); GLOMERULAR FILTRATION RATE > 60.0 (>42); GLUCOSE, FASTING 97 MG/DL (74-106); SODIUM LEVEL 128 MMOL/L (136-145)
[2023-09-30] MEDS: FUROSEMIDE 40 MG TAB PO SCH (16:29)
[2023-10-01] VITALS (11 sets, daily range): BP systolic 95–112; BP diastolic 54–74; TEMP 98.6–99.7; O2SAT 92–97
[2023-10-01 06:12] LABS: BASO % 0.7 % (0.0-1.0); EOS # 0.1 10^3/uL (0.0-0.5); HEMATOCRIT 25.7 % (42.0-52.0); HEMOGLOBIN 7.7 g/dl (13.5-17.5); LYMPH # 0.8 10^3/uL (1.5-5.0); LYMPH % 13.8 % (24.0-44.0); MEAN CORPUSCULAR HEMOGLOBIN 21.3 pg (27.0-33.0); MONO # 0.6 10^3/uL (0.0-0.8); MONO % 9.5 % (2.0-8.0); NEUTROPHILS # 4.4 10^3/uL (1.5-8.5); NEUTROPHILS % 73.7 % (36.0-66.0); PLATELET COUNT, AUTOMATED 143 10^3/uL (150-450); RED BLOOD COUNT 3.62 10^6/uL (4.30-6.10)
[2023-10-01 06:45] LABS: CALCIUM LEVEL 7.8 MG/DL (8.3-10.6); CREATININE FOR GFR 1.4 MG/DL (0.70-1.30); GLOMERULAR FILTRATION RATE 52.3 (>42); POTASSIUM SERUM 3.8 MMOL/L (3.5-5.1)
[2023-10-01] MEDS: THIAMINE 100 MG TAB PO SCH (09:23)
[2023-10-01 11:51] LABS: PERCENT SATURATION 7.1 % (19.7-50.0)
[2023-10-01 11:54] LABS: FERRITIN 22.3 NG/ML (10.5-307.3); FOLATE 6.7 NG/ML (>5.4)
[2023-10-01] MEDS ORDERED: ONDANSETRON 4MG 2ML VIAL As Ordered ONE (14:06)
[2023-10-01] MEDS ORDERED: propofoL 200 MG/20 ML VIAL As Ordered ONE (14:06)
[2023-10-01] MEDS ORDERED: LIDOCAINE 2% 100MG/5ML SDV (FOR ANES.) As Ordered ONE (14:06)
[2023-10-01] MEDS ORDERED: KETOROLAC 60MG 2ML VIAL As Ordered ONE (14:06)
[2023-10-01] MEDS ORDERED: SUGAMMADEX SODIUM 500 MG/5 ML VIAL (BRIDION) As Ordered ONE (14:06)
[2023-10-01] MEDS ORDERED: ROCURONIUM BROMIDE 50MG/5ML VIAL As Ordered ONE (14:06)
[2023-10-01] MEDS ORDERED: fentaNYL 100 MCG/2 ML INJECTION As Ordered ONE (14:44)
[2023-10-01] MEDS ORDERED: MIDAZOLAM INJ 2MG/2ML VIAL As Ordered ONE (14:45)
[2023-10-01] MEDS ORDERED: ceFAZolin 2 GM/D5W 50 ML IV BAG As Ordered ONE (15:02)
[2023-10-01] MEDS ORDERED: ACETAMINOPHEN 1000MG 100ML IV BAG As Ordered ONE (15:16)
[2023-10-01] MEDS: LIDOCAINE 1% SDV 30ML VIAL As Ordered ONE (15:24)
[2023-10-01] MEDS ORDERED: PHENYLephrine 500MCG 5ML (100MCG/ML) SYRINGE As Ordered ONE (15:40)
[2023-10-01] MEDS ORDERED: ONDANSETRON 4MG 2ML VIAL IV PRN (15:55)
[2023-10-01] MEDS ORDERED: fentaNYL 100 MCG/2 ML INJECTION IV PRN (15:55)
[2023-10-01] MEDS: oxyCODONE 5MG TAB PO PRN (16:37)
[2023-10-01] MEDS ORDERED: oxyCODONE 5MG TAB PO PRN (19:50)
[2023-10-02] VITALS (8 sets, daily range): BP systolic 92–112; BP diastolic 57–62; TEMP 97.1–99; O2SAT 94–96
[2023-10-02 05:46] LABS: BASO % 0.2 % (0.0-1.0); HEMATOCRIT 27.6 % (42.0-52.0); HEMOGLOBIN 8.4 g/dl (13.5-17.5); LYMPH # 0.4 10^3/uL (1.5-5.0); LYMPH % 7.6 % (24.0-44.0); MEAN CORPUSCULAR HEMOGLOBIN 21.9 pg (27.0-33.0); MEAN CORPUSCULAR HGB CONC 30.4 g/dl (32.0-36.5); MEAN CORPUSCULAR VOLUME 71.9 fl (80.0-96.0); MONO # 0.4 10^3/uL (0.0-0.8); MONO % 7.2 % (2.0-8.0); NEUTROPHILS # 4.6 10^3/uL (1.5-8.5); NEUTROPHILS % 84.6 % (36.0-66.0); PLATELET COUNT, AUTOMATED 138 10^3/uL (150-450); RED BLOOD COUNT 3.84 10^6/uL (4.30-6.10); WHITE BLOOD COUNT 5.4 10^3/uL (4.0-10.0)
[2023-10-02 06:15] LABS: CALCIUM LEVEL 8.3 MG/DL (8.3-10.6); CREATININE FOR GFR 1.25 MG/DL (0.70-1.30); GLOMERULAR FILTRATION RATE 59.6 (>42); POTASSIUM SERUM 4.3 MMOL/L (3.5-5.1)
[2023-10-02] MEDS: oxyCODONE 5MG TAB PO PRN (07:43)
[2023-10-02] MEDS: VANCOMYCIN HCL 1,000 MG, VIAL MATE ADAPTER 1 EACH in D5W 250 ML IV ONE (15:35)
[2023-10-02] MEDS: VANCOMYCIN HCL 1,000 MG, VIAL MATE ADAPTER 1 EACH in D5W 250 ML IV SCH (20:01)
[2023-10-02] MEDS: LACTULOSE 20GM/30ML SYRUP UDC PO SCH (21:00)
[2023-10-03 06:00] VITALS: BP 114/73; TEMP 99; O2SAT 92
[2023-10-03 08:22] LABS: BASO % 0.7 % (0.0-1.0); EOS # 0.1 10^3/uL (0.0-0.5); EOS % 1.8 % (0.0-3.0); HEMATOCRIT 30.6 % (42.0-52.0); LYMPH # 0.6 10^3/uL (1.5-5.0); LYMPH % 9.5 % (24.0-44.0); MEAN CORPUSCULAR HEMOGLOBIN 21.3 pg (27.0-33.0); MEAN CORPUSCULAR HGB CONC 29.4 g/dl (32.0-36.5); MEAN CORPUSCULAR VOLUME 72.3 fl (80.0-96.0); MONO # 0.5 10^3/uL (0.0-0.8); MONO % 8.9 % (2.0-8.0); NEUTROPHILS # 4.8 10^3/uL (1.5-8.5); NEUTROPHILS % 78.8 % (36.0-66.0); PLATELET COUNT, AUTOMATED 154 10^3/uL (150-450); RED BLOOD COUNT 4.23 10^6/uL (4.30-6.10); WHITE BLOOD COUNT 6.1 10^3/uL (4.0-10.0)
[2023-10-03 08:33] VITALS: BP 104/55
[2023-10-03 08:48] LABS: BLOOD UREA NITROGEN 24 MG/DL (9-23); CALCIUM LEVEL 7.9 MG/DL (8.3-10.6); CARBON DIOXIDE LEVEL 27 MMOL/L (20-31); CHLORIDE LEVEL 102 MMOL/L (98-107); CREATININE FOR GFR 1.16 MG/DL (0.70-1.30); GLOMERULAR FILTRATION RATE > 60.0 (>42); GLUCOSE, FASTING 102 MG/DL (74-106); POTASSIUM SERUM 4.2 MMOL/L (3.5-5.1); SODIUM LEVEL 133 MMOL/L (136-145)
[2023-10-03 14:00] VITALS: BP 101/61; TEMP 98.8; O2SAT 96
[2023-10-03] MEDS: ceFAZolin SOD 2 GM in IV 1 EA IV SCH (14:01)
[2023-10-03] MEDS: BISACODYL 10MG SUPP PR ONE (15:09)
[2023-10-03 16:51] VITALS: BP 118/70
[2023-10-03 20:43] VITALS: BP 124/74; TEMP 99.7; O2SAT 96
[2023-10-04 05:37] VITALS: BP 108/61; TEMP 98.8; O2SAT 95
[2023-10-04 05:46] LABS: BASO % 0.3 % (0.0-1.0); EOS # 0.1 10^3/uL (0.0-0.5); EOS % 0.5 % (0.0-3.0); HEMATOCRIT 32.8 % (42.0-52.0); HEMOGLOBIN 9.9 g/dl (13.5-17.5); LYMPH # 0.7 10^3/uL (1.5-5.0); LYMPH % 5.5 % (24.0-44.0); MEAN CORPUSCULAR HEMOGLOBIN 21.7 pg (27.0-33.0); MEAN CORPUSCULAR HGB CONC 30.2 g/dl (32.0-36.5); MEAN CORPUSCULAR VOLUME 71.8 fl (80.0-96.0); MONO # 0.8 10^3/uL (0.0-0.8); MONO % 6.8 % (2.0-8.0); NEUTROPHILS # 10.3 10^3/uL (1.5-8.5); NEUTROPHILS % 86.4 % (36.0-66.0); PLATELET COUNT, AUTOMATED 178 10^3/uL (150-450); RED BLOOD COUNT 4.57 10^6/uL (4.30-6.10); WHITE BLOOD COUNT 11.9 10^3/uL (4.0-10.0)
[2023-10-04 06:09] LABS: BLOOD UREA NITROGEN 26 MG/DL (9-23); CARBON DIOXIDE LEVEL 29 MMOL/L (20-31); CHLORIDE LEVEL 99 MMOL/L (98-107); CREATININE FOR GFR 1.22 MG/DL (0.70-1.30); GLOMERULAR FILTRATION RATE > 60.0 (>42); GLUCOSE, FASTING 110 MG/DL (74-106); POTASSIUM SERUM 4.3 MMOL/L (3.5-5.1); SODIUM LEVEL 132 MMOL/L (136-145)
[2023-10-04] MEDS: FERROUS GLUCONATE 324 MG TAB PO SCH (11:57)
[2023-10-04 14:00] VITALS: BP 112/64; TEMP 98.2; O2SAT 97
[2023-10-04 20:13] VITALS: BP 102/64; TEMP 98.7; O2SAT 97
[2023-10-04] MEDS: RAMELTEON 8 MG TAB (ROZEREM) PO PRN (22:01)
[2023-10-05 05:23] VITALS: BP 97/64; TEMP 97.9; O2SAT 97
[2023-10-05 05:50] LABS: BASO # 0.1 10^3/uL (0.0-0.2); BASO % 0.8 % (0.0-1.0); EOS # 0.3 10^3/uL (0.0-0.5); EOS % 3.2 % (0.0-3.0); HEMATOCRIT 29.4 % (42.0-52.0); HEMOGLOBIN 8.8 g/dl (13.5-17.5); LYMPH # 0.9 10^3/uL (1.5-5.0); LYMPH % 11.5 % (24.0-44.0); MEAN CORPUSCULAR HEMOGLOBIN 21.6 pg (27.0-33.0); MEAN CORPUSCULAR HGB CONC 29.9 g/dl (32.0-36.5); MEAN CORPUSCULAR VOLUME 72.2 fl (80.0-96.0); MONO # 0.8 10^3/uL (0.0-0.8); MONO % 10.2 % (2.0-8.0); NEUTROPHILS # 5.9 10^3/uL (1.5-8.5); NEUTROPHILS % 73.9 % (36.0-66.0); PLATELET COUNT, AUTOMATED 167 10^3/uL (150-450); RED BLOOD COUNT 4.07 10^6/uL (4.30-6.10); WHITE BLOOD COUNT 7.9 10^3/uL (4.0-10.0)
[2023-10-05 06:20] LABS: CALCIUM LEVEL 7.9 MG/DL (8.3-10.6); CREATININE FOR GFR 1.26 MG/DL (0.70-1.30); GLOMERULAR FILTRATION RATE 59.1 (>42); POTASSIUM SERUM 3.9 MMOL/L (3.5-5.1)
[2023-10-05 14:00] VITALS: BP 97/55; TEMP 98.1; O2SAT 95
[2023-10-05 21:00] VITALS: BP 94/59; TEMP 98.2; O2SAT 95
[2023-10-06 05:10] VITALS: BP 107/67; TEMP 98.1; O2SAT 94
[2023-10-06 14:00] VITALS: BP 90/54; TEMP 98.2; O2SAT 95
[2023-10-06 21:40] VITALS: BP 104/64; TEMP 98.4; O2SAT 94
[2023-10-06] MEDS: ANALGESIC BALM CRM 3OZ TOP PRN (22:55)
[2023-10-07 06:00] VITALS: BP 110/58; TEMP 98.1; O2SAT 94
[2023-10-07] MEDS ORDERED: MAGN400T2 PO (10:11)
[2023-10-07] MEDS ORDERED: COLA100C5 PO (10:11)
[2023-10-07] MEDS ORDERED: ALDA50TA2 PO (10:11)
[2023-10-07] MEDS ORDERED: FURO40TA2 PO (10:11)
[2023-10-07] MEDS ORDERED: LACT20EL PO (10:11)
[2023-10-07] MEDS ORDERED: FERR32TA PO (10:11)
[2023-10-07] MEDS ORDERED: CEFD1CAP9 PO (10:11)
[2023-10-07] MEDS ORDERED: FOLI1TAB11 PO (10:11)
[2023-10-07] MEDS ORDERED: Multivitamins PO (10:11)
[2023-10-07 14:00] VITALS: BP 97/57; TEMP 98.1; O2SAT 95
== END 2023-10-07 14:39 | disposition home or self-care (01) | DRG 353 ==
LOC: EDBD 23:33 → M ED 23:33 → M ED INP 23:34 → OBSVTOIN 23:34 → M MSPAV 09-28 04:05
PROVIDERS: ADMIT Internal Medicine; ATTEND Internal Medicine Nephrology
PROC: 30233J1 Transfusion of Nonautologous Serum Albumin into Peripheral Vein, Percutaneous Approach (ICD-10-PCS; 2023-09-28)
PROC: 0W9G3ZZ Drainage of Peritoneal Cavity, Percutaneous Approach (ICD-10-PCS; 2023-09-29)
PROC: 30233N1 Transfusion of Nonautologous Red Blood Cells into Peripheral Vein, Percutaneous Approach (ICD-10-PCS; 2023-10-01)
PROC: 0WQF0ZZ Repair Abdominal Wall, Open Approach (ICD-10-PCS; principal; 2023-10-01 15:20)
PROC: B246ZZZ Ultrasonography of Right and Left Heart (ICD-10-PCS; 2023-10-05)
DX: K42.0 Umbilical hernia with obstruction, without gangrene (principal); K65.9 Peritonitis, unspecified; K76.6 Portal hypertension; E87.1 Hypo-osmolality and hyponatremia; K70.31 Alcoholic cirrhosis of liver with ascites; D63.8 Anemia in other chronic diseases classified elsewhere; F43.10 Post-traumatic stress disorder, unspecified; I12.9 Hypertensive chronic kidney disease with stage 1 through stage 4 chronic kidney disease, or unspecified chronic kidney disease; R00.0 Tachycardia, unspecified; K21.9 Gastro-esophageal reflux disease without esophagitis; M19.90 Unspecified osteoarthritis, unspecified site; D50.9 Iron deficiency anemia, unspecified; E78.5 Hyperlipidemia, unspecified; F10.90 Alcohol use, unspecified, uncomplicated; R60.1 Generalized edema; N18.9 Chronic kidney disease, unspecified; Z90.49 Acquired absence of other specified parts of digestive tract; Z87.891 Personal history of nicotine dependence; Z20.822 Contact with and (suspected) exposure to COVID-19; Z79.899 Other long term (current) drug therapy

== ENCOUNTER → 2023-10-13 | Outpatient (REF) ==
[~2023-10-13] MED LIST changes: +ALDA50TA2 PO; +CEFD1CAP9 PO; +COLA100C5 PO; +FERR32TA PO; +FOLI1TAB11 PO; +LACT20EL PO; +MAGN400T2 PO; +Multivitamins PO; +SPIR-10 PO; +TRAZ-252 PO
[2023-10-13 08:03] LABS: HEMATOCRIT 28.3 % (42.0-52.0); HEMOGLOBIN 8.5 g/dl (13.5-17.5); MEAN CORPUSCULAR HEMOGLOBIN 22.3 pg (27.0-33.0); MEAN CORPUSCULAR VOLUME 74.3 fl (80.0-96.0); PLATELET COUNT, AUTOMATED 173 10^3/uL (150-450); RED BLOOD COUNT 3.81 10^6/uL (4.30-6.10); WHITE BLOOD COUNT 5.2 10^3/uL (4.0-10.0)
[2023-10-13 08:39] LABS: ALBUMIN 1.9 G/DL (3.2-5.2); BILIRUBIN,DIRECT 0.3 MG/DL (<0.4); BILIRUBIN,TOTAL 0.6 MG/DL (0.3-1.2); CALCIUM LEVEL 7.8 MG/DL (8.3-10.6); CREATININE FOR GFR 1.42 MG/DL (0.70-1.30); GLOMERULAR FILTRATION RATE 51.5 (>42); POTASSIUM SERUM 4.6 MMOL/L (3.5-5.1); TOTAL PROTEIN 5.3 G/DL (5.7-8.2)
== END ==
PROVIDERS: ATTEND Physician Assistant
DX: D64.9 Anemia, unspecified (principal)

== ENCOUNTER → 2023-10-22 | Outpatient (CLI) | payer MEDICARE, OTHER ==
[2023-10-22 11:48] VITALS: BP 98/59; O2SAT 100
== END ==
LOC: M IRPRO 11:14
PROVIDERS: ATTEND Internal Medicine
DX: K70.11 Alcoholic hepatitis with ascites (principal)

== ENCOUNTER → 2023-10-27 | Outpatient (REF) ==
[2023-10-27 11:46] LABS: HEMATOCRIT 24.1 % (42.0-52.0); RED BLOOD COUNT 2.84 10^6/uL (4.30-6.10); WHITE BLOOD COUNT 4.3 10^3/uL (4.0-10.0)
[2023-10-27 11:47] LABS: MEAN CORPUSCULAR HEMOGLOBIN 24.6 pg (27.0-33.0); MEAN CORPUSCULAR VOLUME 84.9 fl (80.0-96.0); PLATELET COUNT, AUTOMATED 175 10^3/uL (150-450)
[2023-10-27 12:09] LABS: CALCIUM LEVEL 7.7 MG/DL (8.3-10.6); CREATININE FOR GFR 1.3 MG/DL (0.70-1.30); POTASSIUM SERUM 4.7 MMOL/L (3.5-5.1)
== END ==
PROVIDERS: ATTEND Physician Assistant
DX: D64.9 Anemia, unspecified (principal)

== ENCOUNTER 2023-10-29 15:53 | Emergency (ER) | payer MEDICARE, OTHER ==
[~2023-10-29] VITALS: Ht 198.1 cm; Wt 85.5 kg
[~2023-10-29 15:53] MED LIST changes: -ACET-907 PO; -BISA10SU27 PR; -ENSULIQ9 PO; -FLEEENE12 PR; -FLON1SPR NARES; -MAGN400T35 PO; -MILKSUS3 PO; -PRESCAP PO; -SPIR50TA4 PO; -[UNRECOGNIZED DRUG - CODE] TOP
[2023-10-29] MEDS ORDERED: PRESCAP PO (16:50)
[2023-10-29] MEDS ORDERED: FLON1SPR NARES (16:50)
[2023-10-29] MEDS ORDERED: MAGN400T35 PO (16:50)
[2023-10-29] MEDS ORDERED: SPIR50TA4 PO (16:50)
[2023-10-29] MEDS ORDERED: ENSULIQ9 PO (16:50)
[2023-10-29] MEDS ORDERED: MIRA3350 PO (16:50)
[2023-10-29] MEDS ORDERED: FERR1TAB8 PO (16:50)
[2023-10-29] MEDS ORDERED: FOLI1TAB11 PO (16:50)
[2023-10-29] MEDS ORDERED: LACT20EL PO (16:50)
[2023-10-29] MEDS ORDERED: MELA3TAB30 PO (16:50)
[2023-10-29] MEDS ORDERED: FURO40TA2 PO (16:50)
[2023-10-29] MEDS ORDERED: [UNRECOGNIZED DRUG - CODE] TOP (16:50)
[2023-10-29] MEDS ORDERED: COLA100C5 PO (16:50)
[2023-10-29] MEDS ORDERED: BISA10SU27 PR (16:58)
[2023-10-29] MEDS ORDERED: FLEEENE12 PR (16:58)
[2023-10-29] MEDS ORDERED: ACET-907 PO (16:58)
[2023-10-29] MEDS ORDERED: MILKSUS3 PO (16:58)
[2023-10-29] MEDS ORDERED: HOME MED LIST COMPLETE! XX SCH (17:00)
[2023-10-29 17:19] LABS: BASO # 0.1 10^3/uL (0.0-0.2); BASO % 1.9 % (0.0-1.0); EOS # 0.1 10^3/uL (0.0-0.5); EOS % 2.1 % (0.0-3.0); HEMATOCRIT 23.9 % (42.0-52.0); LYMPH % 23.5 % (24.0-44.0); MEAN CORPUSCULAR HEMOGLOBIN 24.4 pg (27.0-33.0); MEAN CORPUSCULAR HGB CONC 29.3 g/dl (32.0-36.5); MEAN CORPUSCULAR VOLUME 83.3 fl (80.0-96.0); MONO # 0.6 10^3/uL (0.0-0.8); MONO % 12.9 % (2.0-8.0); NEUTROPHILS # 2.5 10^3/uL (1.5-8.5); NEUTROPHILS % 59.4 % (36.0-66.0); PLATELET COUNT, AUTOMATED 171 10^3/uL (150-450); RED BLOOD COUNT 2.87 10^6/uL (4.30-6.10); WHITE BLOOD COUNT 4.3 10^3/uL (4.0-10.0)
[2023-10-29 17:36] LABS: CALCIUM LEVEL 7.4 MG/DL (8.3-10.6); CREATININE FOR GFR 1.4 MG/DL (0.70-1.30); GLOMERULAR FILTRATION RATE 52.3 (>42); POTASSIUM SERUM 4.6 MMOL/L (3.5-5.1)
[2023-10-29 18:18] LABS: ALBUMIN 2.2 G/DL (3.2-5.2); BILIRUBIN,DIRECT 0.2 MG/DL (<0.4); BILIRUBIN,TOTAL 0.4 MG/DL (0.3-1.2); TOTAL PROTEIN 5.9 G/DL (5.7-8.2)
[2023-10-29 18:32] VITALS: BP 111/61; TEMP 98.4; O2SAT 99
[2023-10-29 18:46] VITALS: BP 110/64; TEMP 98.4; O2SAT 100
[2023-10-29 19:07] LABS: INR 1.23; PARTIAL THROMBOPLASTIN TIME 31.9 SECONDS (24.8-34.2); PROTHROMBIN TIME 15.1 SECONDS (12.5-14.5)
[2023-10-29 19:45] VITALS: BP_SYST 110; TEMP 98.5; O2SAT 100
[2023-10-29 21:25] VITALS: BP 107/56; TEMP 98.4; O2SAT 99
== END 2023-10-29 21:27 | disposition left against medical advice (07) ==
LOC: EDBD 15:53 → M ED 15:53
DX: D64.9 Anemia, unspecified (principal); Z53.9 Procedure and treatment not carried out, unspecified reason; K70.30 Alcoholic cirrhosis of liver without ascites; M19.90 Unspecified osteoarthritis, unspecified site; Z79.899 Other long term (current) drug therapy
CPT/HCPCS: 36430; 80048; 80076; 85025; 85610; 85730; 86850; 86900; 86901; 86920; 93041; 94760; 99284; P9016

== ENCOUNTER → 2023-10-29 | Outpatient (REF) ==
[~2023-10-29] MED LIST changes: +ACET-907 PO; +BISA10SU27 PR; +ENSULIQ9 PO; +FLEEENE12 PR; +FLON1SPR NARES; +MAGN400T35 PO; +MILKSUS3 PO; +PRESCAP PO; +SPIR50TA4 PO; +[UNRECOGNIZED DRUG - CODE] TOP
[2023-10-29 13:23] LABS: HEMATOCRIT 24.4 % (42.0-52.0); MEAN CORPUSCULAR HGB CONC 28.3 g/dl (32.0-36.5); MEAN CORPUSCULAR VOLUME 84.7 fl (80.0-96.0); PLATELET COUNT, AUTOMATED 171 10^3/uL (150-450); RED BLOOD COUNT 2.88 10^6/uL (4.30-6.10); WHITE BLOOD COUNT 3.1 10^3/uL (4.0-10.0)
[2023-10-29 13:46] LABS: HEMOGLOBIN 6.9 g/dl (13.5-17.5)
[2023-10-29 13:55] LABS: CALCIUM LEVEL 7.6 MG/DL (8.3-10.6); CREATININE FOR GFR 1.27 MG/DL (0.70-1.30); GLOMERULAR FILTRATION RATE 58.5 (>42); POTASSIUM SERUM 4.1 MMOL/L (3.5-5.1)
== END ==
PROVIDERS: ATTEND Physician Assistant
DX: D64.9 Anemia, unspecified (principal)

== ENCOUNTER → 2023-11-03 | Outpatient (REF) ==
[~2023-11-03] MED LIST changes: +ACET-907 PO; +BISA10SU27 PR; +ENSULIQ9 PO; +FLEEENE12 PR; +FLON1SPR NARES; +MAGN400T35 PO; +MILKSUS3 PO; +PRESCAP PO; +SPIR50TA4 PO; +[UNRECOGNIZED DRUG - CODE] TOP
[2023-11-03 06:48] LABS: HEMOGLOBIN 7.5 g/dl (13.5-17.5); MEAN CORPUSCULAR HEMOGLOBIN 25.8 pg (27.0-33.0); MEAN CORPUSCULAR VOLUME 85.9 fl (80.0-96.0); PLATELET COUNT, AUTOMATED 146 10^3/uL (150-450); RED BLOOD COUNT 2.91 10^6/uL (4.30-6.10); WHITE BLOOD COUNT 4.6 10^3/uL (4.0-10.0)
== END ==
PROVIDERS: ATTEND Physician Assistant
DX: D64.9 Anemia, unspecified (principal)

== ENCOUNTER → 2023-11-05 | Outpatient (REF) | PROVIDERS: ATTEND Physician Assistant | DX: D64.9 Anemia, unspecified (principal); Z53.8 Procedure and treatment not carried out for other reasons ==

== ENCOUNTER → 2023-11-05 | Outpatient (REF) | PROVIDERS: ATTEND Physician Assistant | DX: D64.9 Anemia, unspecified (principal); Z53.8 Procedure and treatment not carried out for other reasons ==

== ENCOUNTER → 2023-11-05 | Outpatient (CLI) | payer OTHER, MEDICARE ==
[~2023-11-05] MED LIST changes: +LIDOCAINE 1% MDV 20ML VIAL As Ordered ONE
[2023-11-05 11:20] VITALS: TEMP 98
[2023-11-05 12:55] VITALS: BP 116/58; O2SAT 100
== END ==
LOC: M IRPRO 11:11
PROVIDERS: ATTEND Internal Medicine
DX: K70.11 Alcoholic hepatitis with ascites (principal)

== ENCOUNTER → 2023-11-19 | Outpatient (CLI) | payer OTHER, MEDICARE ==
[~2023-11-19] MED LIST changes: -LIDOCAINE 1% MDV 20ML VIAL As Ordered ONE
[2023-11-19 11:04] VITALS: TEMP 97.6
[2023-11-19 11:28] VITALS: BP 111/67; O2SAT 99
== END ==
LOC: M IRPRO 10:55
PROVIDERS: ATTEND Internal Medicine
DX: K70.11 Alcoholic hepatitis with ascites (principal)

== ENCOUNTER → 2023-12-03 | Outpatient (CLI) | payer OTHER, MEDICARE ==
[2023-12-03 11:08] VITALS: TEMP 98
[2023-12-03 12:00] VITALS: BP 105/64; O2SAT 97
== END ==
LOC: M IRPRO 10:58
PROVIDERS: ATTEND Internal Medicine
DX: K70.11 Alcoholic hepatitis with ascites (principal)

== ENCOUNTER → 2023-12-09 | Outpatient (REF) | payer MEDICARE, OTHER ==
[2023-12-09 15:03] LABS: BASO # 0.1 10^3/uL (0.0-0.2); BASO % 1.3 % (0.0-1.0); EOS # 0.1 10^3/uL (0.0-0.5); EOS % 1.5 % (0.0-3.0); HEMATOCRIT 29.6 % (42.0-52.0); HEMOGLOBIN 8.6 g/dl (13.5-17.5); LYMPH # 0.8 10^3/uL (1.5-5.0); LYMPH % 16.2 % (24.0-44.0); MEAN CORPUSCULAR HGB CONC 29.1 g/dl (32.0-36.5); MEAN CORPUSCULAR VOLUME 82.7 fl (80.0-96.0); MONO # 0.4 10^3/uL (0.0-0.8); MONO % 8.7 % (2.0-8.0); NEUTROPHILS # 3.3 10^3/uL (1.5-8.5); NEUTROPHILS % 71.9 % (36.0-66.0); PLATELET COUNT, AUTOMATED 173 10^3/uL (150-450); RED BLOOD COUNT 3.58 10^6/uL (4.30-6.10); WHITE BLOOD COUNT 4.6 10^3/uL (4.0-10.0)
[2023-12-09 15:24] LABS: APPEARANCE, URINE CLEAR (CLEAR); BACTERIA, URINE AUTO NEGATIVE (NEGATIVE); BILIRUBIN, URINE AUTO NEGATIVE (NEGATIVE); BLOOD, URINE BLOOD NEGATIVE (NEGATIVE); COLOR, URINE YELLOW (YELLOW); GLUCOSE, URINE (UA) AUTO NEGATIVE (NEGATIVE); KETONE, URINE AUTO NEGATIVE (NEGATIVE); LEUKOCYTE ESTERASE, URINE AUTO NEGATIVE (NEGATIVE); NITRITE, URINE AUTO NEGATIVE (NEGATIVE); PROTEIN, URINE AUTO NEGATIVE (NEGATIVE); RBC, URINE AUTO 1 /HPF (0-3); SQUAMOUS EPITHELIAL CELL UR AU 1 /HPF (0-6); UROBILINOGEN, URINE AUTO 0.2 mg/dL (0.0-2.0); WBC, URINE AUTO 0 /HPF (0-3)
[2023-12-09 15:30] LABS: LDH LACTATE DEHYDROGENASE 207 U/L (120-246)
[2023-12-09 15:31] LABS: ALKALINE PHOSPHATASE 253 U/L (46-116); ALT/SGPT < 9 U/L (7.0-40); AST/SGOT 29 U/L (<34); BILIRUBIN,TOTAL 0.6 MG/DL (0.3-1.2); BLOOD UREA NITROGEN 18 MG/DL (9-23); CARBON DIOXIDE LEVEL 28 MMOL/L (20-31); CHLORIDE LEVEL 98 MMOL/L (98-107); CREATININE FOR GFR 1.31 MG/DL (0.70-1.30); GLOMERULAR FILTRATION RATE 56.3 (>42); GLUCOSE, FASTING 97 MG/DL (74-106); IRON (FE) 14 UG/DL (65-175); PERCENT SATURATION 4.4 % (19.7-50.0); POTASSIUM SERUM 3.8 MMOL/L (3.5-5.1); SODIUM LEVEL 133 MMOL/L (136-145); TOTAL IRON BINDING CAPACITY 320 UG/DL (250-425); TOTAL PROTEIN 6.2 G/DL (5.7-8.2)
== END ==
LOC: M SHH 14:33
PROVIDERS: ATTEND Internal Medicine
DX: E78.2 Mixed hyperlipidemia (principal); Z86.39 Personal history of other endocrine, nutritional and metabolic disease; Z79.899 Other long term (current) drug therapy

== ENCOUNTER → 2023-12-11 | Outpatient (CLI) | payer OTHER, MEDICARE ==
[2023-12-11 10:10] VITALS: TEMP 98
[2023-12-11 11:48] VITALS: BP 8/66; O2SAT 97
== END ==
LOC: M IRPRO 09:59
PROVIDERS: ATTEND Internal Medicine
DX: R18.8 Other ascites (principal)

== ENCOUNTER → 2023-12-22 | Outpatient (CLI) | payer OTHER, MEDICARE ==
[2023-12-22 10:54] VITALS: TEMP 98.2
[2023-12-22 11:50] VITALS: BP 115/59; O2SAT 98
== END ==
LOC: M IRPRO 10:48
PROVIDERS: ATTEND Internal Medicine
DX: R18.8 Other ascites (principal)

== ENCOUNTER → 2023-12-29 | Outpatient (CLI) | payer OTHER, MEDICARE ==
[2023-12-29 11:15] VITALS: TEMP 98.3
[2023-12-29 13:00] VITALS: BP 101/55; O2SAT 99
== END ==
LOC: M IRPRO 11:09
PROVIDERS: ATTEND Internal Medicine
DX: R18.8 Other ascites (principal)

== ENCOUNTER → 2024-01-16 | Outpatient (CLI) | payer OTHER, MEDICARE ==
[2024-01-16 12:03] VITALS: TEMP 98.4
[2024-01-16 12:51] VITALS: BP 118/72; O2SAT 100
[2024-01-16 12:54] VITALS: BP 117/88; O2SAT 100
== END ==
LOC: M IRPRO 11:52
PROVIDERS: ATTEND Internal Medicine
DX: R18.8 Other ascites (principal)
CPT/HCPCS: 49083; 96365; P9047

== ENCOUNTER → 2024-01-23 | Outpatient (CLI) | payer OTHER, MEDICARE ==
[2024-01-23 11:46] VITALS: BP 100/64; TEMP 98; O2SAT 98
[2024-01-23 11:52] VITALS: BP 111/63; TEMP 97.9; O2SAT 99
[2024-01-23 12:01] VITALS: BP 100/61; TEMP 98; O2SAT 99
[2024-01-23 12:03] VITALS: BP 104/59; O2SAT 99
== END ==
LOC: M IRPRO 11:01
PROVIDERS: ATTEND Internal Medicine
DX: R18.8 Other ascites (principal)
CPT/HCPCS: 49083; 96374; P9047

== ENCOUNTER → 2024-01-30 | Outpatient (CLI) | payer OTHER, MEDICARE ==
[2024-01-30 10:30] VITALS: TEMP 98.4
[2024-01-30 11:07] VITALS: BP 107/57; O2SAT 98
[2024-01-30 11:11] VITALS: BP 100/63; O2SAT 96
[2024-01-30 11:20] VITALS: BP 104/52; O2SAT 98
[2024-01-30 11:22] VITALS: BP 104/59; O2SAT 98
== END ==
LOC: M IRPRO 10:28
PROVIDERS: ATTEND Internal Medicine
DX: R18.8 Other ascites (principal)
CPT/HCPCS: 49083; 96365; P9047

== ENCOUNTER → 2024-02-06 | Outpatient (CLI) | payer OTHER, MEDICARE ==
[2024-02-06 11:00] VITALS: TEMP 97.8
[2024-02-06 11:25] VITALS: BP 111/66; O2SAT 100
[2024-02-06 11:33] VITALS: BP 104/60; O2SAT 98
[2024-02-06 11:40] VITALS: BP 102/61; O2SAT 99
== END ==
LOC: M IRPRO 10:09
PROVIDERS: ATTEND Internal Medicine
DX: R18.8 Other ascites (principal)
CPT/HCPCS: 49083; 96374; P9047

== ENCOUNTER → 2024-02-13 | Outpatient (CLI) | payer MEDICARE, OTHER ==
[2024-02-13 10:30] VITALS: TEMP 97.7
[2024-02-13 10:57] VITALS: BP 103/61; O2SAT 100
[2024-02-13 11:01] VITALS: BP 101/55; O2SAT 99
[2024-02-13 11:07] VITALS: BP 99/55; O2SAT 100
== END ==
LOC: M IRPRO 10:24
PROVIDERS: ATTEND Internal Medicine
DX: R18.8 Other ascites (principal)
CPT/HCPCS: 49083; 96374; P9047

== ENCOUNTER → 2024-02-26 | Outpatient (CLI) | payer OTHER, MEDICARE ==
[2024-02-26 11:15] VITALS: TEMP 97.7
[2024-02-26 11:36] VITALS: BP 107/69; O2SAT 98
[2024-02-26 11:42] VITALS: BP 105/65; O2SAT 99
[2024-02-26 11:46] VITALS: BP 103/61; O2SAT 98
[2024-02-26 11:55] VITALS: BP 102/61; O2SAT 100
[2024-02-26 11:59] VITALS: BP 103/68; O2SAT 100
== END ==
LOC: M IRPRO 11:10
PROVIDERS: ATTEND Internal Medicine
DX: R18.8 Other ascites (principal)
CPT/HCPCS: 49083; 96365; P9047

== ENCOUNTER → 2024-03-05 | Outpatient (CLI) | payer MEDICARE, OTHER | LOC: M IRPRO 10:38 | PROVIDERS: ATTEND Internal Medicine | DX: R18.8 Other ascites (principal) | CPT/HCPCS: 49083; 96365; P9047 ==

== ENCOUNTER → 2024-03-12 | Outpatient (CLI) | payer MEDICARE, OTHER ==
[2024-03-12 11:10] VITALS: TEMP 98
[2024-03-12 11:40] VITALS: BP 107/56; O2SAT 98
[2024-03-12 11:44] VITALS: BP 104/61; O2SAT 98
[2024-03-12 11:50] VITALS: BP 103/63; O2SAT 100
[2024-03-12 11:55] VITALS: BP 107/59; O2SAT 99
== END ==
LOC: M IRPRO 11:02
PROVIDERS: ATTEND Internal Medicine
DX: R18.8 Other ascites (principal)
CPT/HCPCS: 49083; 96365; P9047

== ENCOUNTER → 2024-03-19 | Outpatient (CLI) | payer MEDICARE, OTHER ==
[2024-03-19 11:27] VITALS: BP 103/60; TEMP 97.2; O2SAT 98
[2024-03-19 11:30] VITALS: BP 106/64; TEMP 98.2; O2SAT 98
[2024-03-19 11:34] VITALS: BP 106/59; TEMP 98; O2SAT 99
[2024-03-19 11:57] VITALS: BP 101/66; O2SAT 98
== END ==
LOC: M IRPRO 10:29
PROVIDERS: ATTEND Internal Medicine
DX: R18.8 Other ascites (principal)
CPT/HCPCS: 49083; 96374; P9047

== ENCOUNTER → 2024-03-26 | Outpatient (CLI) | payer OTHER, MEDICARE ==
[~2024-03-26] MED LIST changes: +ONDANSETRON 4MG 2ML VIAL As Ordered ONE; +ONDANSETRON 4MG 2ML VIAL IV ONE
[2024-03-26 12:35] VITALS: BP 82/58
[2024-03-26 12:40] VITALS: BP 93/58; TEMP 97.6; O2SAT 100
[2024-03-26 12:48] VITALS: BP 94/59; O2SAT 100
== END ==
LOC: M IRPRO 10:55
PROVIDERS: ATTEND Internal Medicine
DX: R18.8 Other ascites (principal)
CPT/HCPCS: 49083; 96374; J2405; P9047

== ENCOUNTER → 2024-04-02 | Outpatient (CLI) | payer MEDICARE, OTHER ==
[~2024-04-02] MED LIST changes: -ONDANSETRON 4MG 2ML VIAL As Ordered ONE; -ONDANSETRON 4MG 2ML VIAL IV ONE
[2024-04-02 11:35] VITALS: BP 97/64; O2SAT 100
[2024-04-02 11:40] VITALS: BP 106/58; O2SAT 99
[2024-04-02 11:41] LABS: HEMATOCRIT 26.4 % (42.0-52.0); HEMOGLOBIN 7.6 g/dl (13.5-17.5); MEAN CORPUSCULAR HEMOGLOBIN 21.6 pg (27.0-33.0); MEAN CORPUSCULAR HGB CONC 28.8 g/dl (32.0-36.5); PLATELET COUNT, AUTOMATED 169 10^3/uL (150-450); RED BLOOD COUNT 3.52 10^6/uL (4.30-6.10); WHITE BLOOD COUNT 5.6 10^3/uL (4.0-10.0)
[2024-04-02 11:48] VITALS: BP 105/69; O2SAT 100
== END ==
LOC: M IRPRO 10:54
PROVIDERS: ATTEND Internal Medicine
DX: R18.8 Other ascites (principal)
CPT/HCPCS: 49083; 85027; 96374; P9047

== ENCOUNTER → 2024-04-09 | Outpatient (CLI) | payer MEDICARE, OTHER ==
[2024-04-09 11:09] VITALS: BP 91/50; TEMP 98; O2SAT 100
[2024-04-09 11:14] VITALS: BP 93/51; TEMP 98; O2SAT 99
[2024-04-09 11:15] VITALS: BP 93/51; O2SAT 99
== END ==
LOC: M IRPRO 10:40
PROVIDERS: ATTEND Internal Medicine
DX: R18.8 Other ascites (principal)
CPT/HCPCS: 49083; 96374; P9047

== ENCOUNTER → 2024-04-16 | Outpatient (CLI) | payer OTHER, MEDICARE ==
[~2024-04-16] MED LIST changes: +AUGM500T34 PO; +BACI500O8 TOP; +FURO80TA2 PO; +LIDOCAINE 4% CREAM 5GM (LMX4) As Ordered ONE; +PETR99OI TP
[2024-04-16 11:42] VITALS: BP 106/61; TEMP 98.1; O2SAT 100
[2024-04-16 11:47] VITALS: BP 102/62; TEMP 98; O2SAT 100
[2024-04-16 11:54] VITALS: BP 100/60; TEMP 97.9; O2SAT 100
[2024-04-16 12:04] VITALS: BP 98/60; O2SAT 100
== END ==
LOC: M IRPRO 10:57
PROVIDERS: ATTEND Internal Medicine
DX: R18.8 Other ascites (principal)
CPT/HCPCS: 49083; 96374; P9047

== ENCOUNTER 2024-04-18 08:56 | Emergency (ER) | payer MEDICARE, OTHER ==
[~2024-04-18] VITALS: Ht 198.1 cm; Wt 83.7 kg
[~2024-04-18 08:56] MED LIST changes: -AUGM500T34 PO; -BACI500O8 TOP; -FURO80TA2 PO; -LIDOCAINE 4% CREAM 5GM (LMX4) As Ordered ONE; -PETR99OI TP
[2024-04-18] MEDS: BOOSTRIX VACCINE (TETANUS/DIPHTH/ACEL. PERTUSSIS) 0.5ML SYR IM.IMMUN ONE (09:59)
[2024-04-18] MEDS ORDERED: FURO80TA2 PO (10:10)
[2024-04-18] MEDS ORDERED: PETR99OI TP (10:10)
[2024-04-18] MEDS ORDERED: BACI500O8 TOP (11:32)
[2024-04-18] MEDS ORDERED: AUGM500T34 PO (11:33)
[2024-04-18 12:07] VITALS: BP 111/65; TEMP 97.5; O2SAT 99
== END 2024-04-18 12:07 | disposition home or self-care (01) ==
LOC: EDBD 08:56 → M ED 08:56
DX: S02.401A Maxillary fracture, unspecified side, initial encounter for closed fracture (principal); S60.221A Contusion of right hand, initial encounter; L76.12 Accidental puncture and laceration of skin and subcutaneous tissue during other procedure; W06.XXXA Fall from bed, initial encounter; Y92.009 Unspecified place in unspecified non-institutional (private) residence as the place of occurrence of the external cause; Y93.9 Activity, unspecified; Y99.9 Unspecified external cause status; R91.1 Solitary pulmonary nodule; M47.892 Other spondylosis, cervical region; E78.5 Hyperlipidemia, unspecified; D50.9 Iron deficiency anemia, unspecified; N18.9 Chronic kidney disease, unspecified; K74.60 Unspecified cirrhosis of liver; Z79.899 Other long term (current) drug therapy

== ENCOUNTER → 2024-04-23 | Outpatient (CLI) | payer OTHER, MEDICARE ==
[~2024-04-23] MED LIST changes: +AUGM500T34 PO; +BACI500O8 TOP; +FURO80TA2 PO; +PETR99OI TP
[2024-04-23 13:56] VITALS: TEMP 97.6
[2024-04-23 14:30] VITALS: BP 94/61; O2SAT 99
[2024-04-23 14:40] VITALS: BP 88/56; O2SAT 100
[2024-04-23 14:45] VITALS: BP 90/54; O2SAT 100
== END ==
LOC: M IRPRO 13:52
PROVIDERS: ATTEND Internal Medicine
DX: R18.8 Other ascites (principal)
CPT/HCPCS: 49083; 96374; P9047

== ENCOUNTER → 2024-05-03 | Outpatient (CLI) | payer MEDICARE, OTHER ==
[2024-05-03 10:55] VITALS: TEMP 97.5
[2024-05-03 11:47] VITALS: BP 101/63; O2SAT 98
[2024-05-03 11:52] VITALS: BP 101/59; O2SAT 98
[2024-05-03 12:01] VITALS: BP 103/59; O2SAT 100
== END ==
LOC: M IRPRO 10:46
PROVIDERS: ATTEND Internal Medicine
DX: R18.8 Other ascites (principal)
CPT/HCPCS: 49083; 96374; P9047